=== PATIENT | male | born 1990 | race Caucasian/White ===

== ENCOUNTER 2017-03-29 11:39 | Emergency (ER) | payer BC | END 2017-03-29 15:04 | disposition home or self-care (01) | LOC: ER1 11:39 | DX: S61.241A Puncture wound with foreign body of left index finger without damage to nail, initial encounter (principal); F17.290 Nicotine dependence, other tobacco product, uncomplicated; Z88.0 Allergy status to penicillin; Z88.1 Allergy status to other antibiotic agents; W29.4XXA Contact with nail gun, initial encounter; Y92.69 Other specified industrial and construction area as the place of occurrence of the external cause; Y99.0 Civilian activity done for income or pay; Z23 Encounter for immunization | CPT/HCPCS: 73130; 90471; 90715; 99283 ==